=== PATIENT | female | born 1980 ===

== ENCOUNTER 2023-12-06 15:43 | Emergency (ER) | payer BC, OTHER ==
[2023-12-06] MEDS ORDERED: KETOROLAC 15 MG/ML 1 ML VIAL ONE ×2 (17:04→22:12)
[2023-12-06] MEDS ORDERED: ACETAMINOPHEN TAB 500 MG TAB ONE (17:04)
[2023-12-06] MEDS ORDERED: ACET/COD 300 MG/30 MG STARTER PACK 6 TAB BTL PO ONE (23:06)
[2023-12-06] MEDS ORDERED: LIDOCAINE 4% PATCH TOPICAL ONE (23:06)
[2023-12-06] MEDS ORDERED: IBUPROFEN 600 MG STARTER PACK 4 TAB BTL ONE (23:06)
[2023-12-06] MEDS ORDERED: CYCLOBENZAPRINE 10MG STARTER 3 TAB BTL ONE (23:07)
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
== END 2023-12-06 23:17 | disposition home or self-care (01) ==
LOC: EC 15:43
CPT/HCPCS: 70450; 71111; 72125; 73502; 96374; 99284